=== PATIENT | female | born 1960 | race Caucasian/White ===

== ENCOUNTER → 2017-05-02 | Outpatient (CLI) | payer BC ==
--- NOTE | ~2017-05-02 | CR63 ---
[facility] A Service of [facility] & [facility] RADIOLOGY TEXT RESULTS PATIENT: OLYA SMITH LOCATION: [facility] : 60 UNIT #: [id number] AGE: [address]: Anjelica Acevedo MD SEX: F ORDER DR: [id number] [facility] [address] [place], [place] [address] [id number] O MR#: [id number] Acc #: [id number] NAME: OLYA SMITH : 1960 SEX: F STUDY DATE/TIME: 05/02/2017 16:42 UNIT: [facility] ROOM: STUDY DESCRIPTION: CR Chest 2 View Attending Physician: Anjelica Acevedo M.D. Referring Physician: Anjelica Acevedo M.D. Ordering Physician: Anjelica Acevedo M.D. Primary Care Physician: Anjelica Acevedo M.D. MEDICAL IMAGING REPORT This report is preliminary unless electronic signature is present EXAM Chest, 2 views, 05/02/2017, 1642 hours. HISTORY Patient complains of 2-month history of shortness of air when lying down at rest. COMPARISON None. FINDINGS Upright PA and lateral views of the chest demonstrate normal heart size. Aortic contours are normal. The lungs are well expanded. There are calcified granulomata in both lungs. There is no acute pulmonary density or pleural effusion. IMPRESSION Benign calcified granulomatous changes. Otherwise normal 2-view chest exam. Dictated by... Sandra Alozno M.D. THIS IS AN ELECTRONICALLY VERIFIED REPORT Sandra Alonzo M.D. at 05/03/2017 6:41 PM CATE/renuka TD: 05/03/2017 10:00 JOB #: [id number] MEDICAL IMAGING REPORT Page 1 of 1 COPY
== END | disposition home or self-care (01) ==
LOC: CRAD 16:15
DX: R06.02 Shortness of breath (principal); J84.10 Pulmonary fibrosis, unspecified
CPT/HCPCS: 71020